=== PATIENT | male | born 1965 | race Caucasian/White ===

== ENCOUNTER → 2017-12-06 | Outpatient (CLI) | payer BC ==
--- NOTE | 2017-12-06 17:34 | RADIOLOGY REPORT (SQ) ---
EXAM DESCRIPTION: MRI HEAD COMBO COMPLETED DATE/TIME: 12/06/2017 4:05 pm REASON FOR STUDY: HEADACHES H53.469 HOMONYMOUS BILATERAL FIELD DEFECTS, UNSPECIFIED SIDE R51 HEADA EMMY 1 month history of headache mammary loss dizziness double vision COMPARISON: None. TECHNIQUE: Multiplanar imaging includes noncontrasted T1, T2, FLAIR, diffusion with ADC map and post gadolinium contrast T1 sequences. Images stored on PACS. CONTRAST TYPE AND DOSE: 20 mL Prohance. RENAL FUNCTION: GFR > 60. LIMITATIONS: None. FINDINGS: ANATOMY: No developmental anomalies. Pituitary fossa normal. CSF SPACES: Normal in size and contour. No hemorrhage. CEREBRUM: There is a nonhemorrhagic subacute cortical and subcortical white matter infarct in the rig ht occipital lobe. Spotty gyriform enhancement on the post contrasted images. Remainder of the cere bral hemispheres are otherwise unremarkable aside from minimal gliosis along perivascular spaces in t he bifrontal and biparietal regions. POSTERIOR FOSSA: Abnormal flow signal is seen in the right high cervical vertebral artery and right v ertebral artery at the foramen magnum and posterior fossa could be due to the right vertebral artery dissection. There are subacute nonhemorrhagic infarct in the right posterior inferior cerebellar right inferior c erebellar vermis and left inferior cerebellar hemisphere. Normal flow signal in the left distal intr acranial vertebral artery and basilar artery. Postcontrast, subacute posterior fossa infarct exhibit minimal spotty contrast enhancement. DIFFUSION IMAGING: Positive for subacute ischemic change in the right occipital cortex and subcortica l white matter, right inferior cerebellar hemisphere, right inferior cerebellar vermis, and left infe rior cerebellar hemisphere ORBITS: No masses. Globes normal. PARANASAL SINUSES: No fluid levels. Mucosa normal. OTHER: No other significant finding. 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
== END ==
LOC: RAD 15:04
PROVIDERS: ATTEND Neurological Surgery
DX: H53.469 Homonymous bilateral field defects, unspecified side (principal); I63.9 Cerebral infarction, unspecified; R51 Headache
CPT/HCPCS: 82565; 70553; A9576

== ENCOUNTER → 2017-12-11 | Outpatient (CLI) | payer BC ==
--- NOTE | 2017-12-12 07:51 | RADIOLOGY REPORT (SQ) ---
EXAM DESCRIPTION: MRA HEAD WITHOUT COMPLETED DATE/TIME: 12/11/2017 8:00 pm REASON FOR STUDY: I69.398 OTHER SEQUELAE OF CEREBRAL INFARCTION I69.398 OTHER SEQUELAE OF CEREBRAL INFARCTION COMPARISON: None. TECHNIQUE: Axial 3-D [id number] acquisition imaging performed through the brain in the area of t he ak chin of [place]. Images reformatted using 3-D MIPS. LIMITATIONS: None. FINDINGS: SOURCE IMAGES: No unexpected findings on source images. No large masses. 3-D MIP: No aneurysm. No flow detected in the right vertebral artery. No significant stenosis. OTHER: No other significant finding. IMPRESSION: OCCLUSION OF THE RIGHT VERTEBRAL ARTERY. OTHERWISE UNREMARKABLE MRA OF THE HEAD. TECHNICAL DOCUMENTATION: JOB ID: [id number] [employer]- All Rights Reserved Reading location - IP/workstation name: [email or web address]
--- NOTE | 2017-12-12 09:01 | RADIOLOGY REPORT (SQ) ---
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 TECHNIQUE: MRA of the carotid and vertebral arteries was performed using 2D and 3D [id number] te chniques without and with the use of gadolinium. 3-D MIPs performed at the workstation and stored on PACS. CONTRAST TYPE AND DOSE: 20 mL Prohance. RENAL FUNCTION: Creatinine 1.0. LIMITATIONS: None. FINDINGS: GREAT VESSEL ORIGINS: Normal. No stenoses. VERTEBRAL ARTERIES: The left vertebral artery is patent and normal caliber. There is no flow demonst rated in the right vertebral artery. There is increased signal on T1 weighted images. RIGHT CAROTID SYSTEM: No significant stenosis. LEFT CAROTID SYSTEM: Focal stenosis at the origin of the internal carotid artery, suspect greater sophia n 70%. OTHER: No other significant finding. IMPRESSION: 1. OCCLUDED RIGHT VERTEBRAL ARTERY. THIS COULD BE DUE TO ATHEROSCLEROSIS ALTHOUGH DISSECTION IS ALSO IN THE DIFFERENTIAL. 2. FOCAL STENOSIS AT THE ORIGIN OF THE LEFT INTERNAL CAROTID ARTERY, SUSPECTED GREATER THAN 70%. REC OMMEND CORRELATION WITH CAROTID DOPPLER. COMMENT: Quality ID #[id number]: Measurements of distal internal carotid diameter were used as the denomina tor for stenosis measurement. TECHNICAL DOCUMENTATION: JOB ID: [id number] [employer]- All Rights Reserved Reading location - IP/workstation name: [facility]
== END ==
LOC: RAD 18:11
PROVIDERS: ATTEND Neurological Surgery
DX: I69.398 Other sequelae of cerebral infarction (principal)
CPT/HCPCS: 70544; 70549; 82565